=== PATIENT | female | born 1970 | race Caucasian/White ===

== ENCOUNTER 2020-01-19 22:41 | Inpatient (IN) | payer MEDICAID ==
[~2020-01-19] VITALS: Ht 165.1 cm; Wt 51.9 kg
--- NOTE | 2020-01-19 22:54 | NUR ---
49 YO FEMALE BROUGHT IN BY AMBULANCE FROM HOME WITH C/O 10/10 SHARP LEFT SIDE CHESTT PAIN RADIATING TO LEFT SHOULDER. PER EMS, PT RECEIVED NITROGLYCERIN IN ROUTE AND PT REPORTED IMPROVEMENT OF PAIN. AT ED, PT AWAKE, A/OX4, SPEAKING COMPLETE SENTENCES. PT STATES CHEST PAIN IS NOW 4/10. DENIES N/V/D. DENIES ANY COVID19 POSITIVE CONTACT AND STATES SHE WAS TESTED TWO WEEKS AGO AND RESULS WERE NEGATIVE. PT REPORTS HX OF DM AND HTN. RESPIRATIONS EVEN AND UNLABORED. VITALS SIGNS WNL. MD AT BEDSIDE FOR EXAMINATION PENDING FURTHER PLAN OF CARE.
[2020-01-19] MEDS ORDERED: [UNRECOGNIZED DRUG - REMARK] (22:59)
[2020-01-19] MEDS ORDERED: LISI-603 PO (22:59)
[2020-01-19] MEDS ORDERED: [UNRECOGNIZED DRUG - REMARK] (22:59)
[2020-01-19] MEDS ORDERED: NITROGLYCERIN 0.4 MG/TAB BOTTLE SL ONE (23:15)
[2020-01-19 23:23] LABS: CREATININE 0.6 mg/dL (0.6-1.3); POTASSIUM 3.1 mmol/L (3.5-5.1)
[2020-01-19 23:27] LABS: BASOPHILS % (AUTO) 0.7 % (0.0-2.0); EOSINOPHILS # (AUTO) 0.1 K/uL (0.0-0.7); EOSINOPHILS % (AUTO) 2.5 % (0.0-7.0); HEMATOCRIT 38.3 % (31.2-41.9); HEMOGLOBIN 12.6 g/dL (10.9-14.3); LYMPHOCYTES # (AUTO) 2.3 K/uL (20.0-40.0); LYMPHOCYTES % (AUTO) 66.4 % (20.5-51.5); MEAN CORPUSCULAR HEMOGLOBIN 31.8 uug (24.7-32.8); MEAN CORPUSCULAR HGB CONC 33 g/dL (32.3-35.6); MEAN CORPUSCULAR VOLUME 96.5 fL (75.5-95.3); MONOCYTES # (AUTO) 0.4 K/uL (2.0-10.0); MONOCYTES % (AUTO) 12.1 % (0.0-11.0); NEUTROPHILS # (AUTO) 0.6 K/uL (1.8-8.9); NEUTROPHILS % (AUTO) 18.3 % (38.5-71.5); PLATELET COUNT (AUTO) 89 K/uL (179-408); RED BLOOD CELL COUNT(AUTO) 3.97 MIL/uL (3.63-4.92); WHITE BLOOD COUNT (AUTO) 3.4 K/uL (3.8-11.8)
--- NOTE | 2020-01-19 23:29 | NUR ---
PATIENT UNABLE TO PROVIDE URINE SAMPLE AT THIS MOMENT. MD MYERS NOTIFIED.
[2020-01-19 23:35] LABS: BILIRUBIN,DIRECT 0.1 mg/dL (0.0-0.2); BILIRUBIN,TOTAL 0.4 mg/dL (0.2-1.0)
--- NOTE | 2020-01-19 23:41 | NUR ---
POTASSIUM SERUM LEVEL 3.1, MD MYERS NOTIFIED, PENDING FURTHER ORDERS.
--- NOTE | 2020-01-19 23:58 | NUR ---
CALLED [facility] AND PER ATTENDANT VICE CHAIRMAN ELFEGO SCHUSTER WILL BE ADMITTING THE PATIENT. MD MYERS NOTIFIED.
[2020-01-20] MEDS ORDERED: POTASSIUM CHLORIDE 20 MEQ TAB.PRT.SR PO ONE (00:15)
[2020-01-20] MEDS ORDERED: POTASSIUM BICARBONATE/CIT AC 25 MEQ TABLET.EFF ONE (00:19)
[2020-01-20] MEDS ORDERED: ONDANSETRON 4 MG/2 ML VIAL IV PRN (00:30)
[2020-01-20] MEDS ORDERED: MAGNESIUM HYDROXIDE 30 ML LIQUID UDC PO PRN (00:30)
[2020-01-20] MEDS ORDERED: Z GUARD REMEDY PASTE 57 GM TUBE TOP PRN (00:30)
[2020-01-20] MEDS ORDERED: FOLIC ACID 1 MG TABLET PO ONE (00:30)
[2020-01-20] MEDS ORDERED: ACETAMINOPHEN 325 MG TABLET PO PRN (00:30)
[2020-01-20] MEDS ORDERED: THIAMINE HCL 100 MG TABLET PO ONE (00:30)
[2020-01-20] MEDS ORDERED: HYDROCODONE/APAP 5-325MG TABLET PO PRN (00:30)
--- NOTE | 2020-01-20 00:31 | NUR ---
ALTERATIONS SEWER COVID SWAB AND URINE SAMPLE SENT TO LAB.
--- NOTE | 2020-01-20 00:50 | NUR ---
REPORT GIVEN TO GRETCHEN JACKMAN FOR CONTINUATION OF CARE. ALL QUESTIONS ANSWERED.
[2020-01-20 01:01] LABS: *AMPHETAMINE, URINE POSITIVE (NEGATIVE); *BARBITURATE, URINE NEGATIVE (NEGATIVE); *CANNABINOID, URINE POSITIVE (NEGATIVE); *COCCAINE, URINE NEGATIVE (NEGATIVE); *OPIATE, URINE NEGATIVE (NEGATIVE); *PHENCYCLIDINE SCREEN,URINE NEGATIVE (NEGATIVE)
--- NOTE | 2020-01-20 01:38 | NUR ---
PT COMPLAINING OF RESTLESSNESS, STATES "IM FEELING ANXIOUS, I ALWAYS TAKE ATIVAN WHEN IM LIKE THAT. CAN I GET ATIVAN." PER MD MYERS PT NEEDS ATIVAN. PAGED VP DATA ELFEGO SCHUSTER, AWAITING CALL BACK.
--- NOTE | 2020-01-20 01:46 | NUR ---
AISHA TELLES CALLED BACK AND NEW ORDER GIVEN FOR ATIVAN 1MG PO ONCE NOW FOR RESTLESSNESS.
[2020-01-20] MEDS ORDERED: LORAZEPAM 0.5 MG TABLET PO ONE (02:00)
[2020-01-20] MEDS ORDERED: LORAZEPAM 1 MG TABLET ONE (02:01)
--- NOTE | 2020-01-20 03:40 | NUR ---
PATIENT ASLEEP, AROUSABLE TO VOICE. DENIES ANY DISTRESS AT THIS MOMENT. VSS. NAD NOTED.
--- NOTE | 2020-01-20 05:03 | NUR ---
PATIENT ADMITTED TO TELE FLOOR ROOM 308 UNDER CARE OF SUPERVISOR MIRROR FABRICATION ELFEGO SCHUSTER. BELONGINGS LIST COMPLETED. PT AWAKE, A/OX4, SPEAKING COMPLETE SENTENCES. DENIES PAIN OR ANY DISTRESS. VITAL SIGNS WNL. NO ACUTE DISTRESS NOTED.
--- NOTE | 2020-01-20 05:05 | NUR ---
Received patient via wheelchair. Patient is AAOx4. Patient denies any chest pain or acute distress at this time. V/S stable and on room air. NSR 90 on tele monitor. Belongings list checked and secured. LW IV is intact. Safety measures in place. Call light within reach. Will continue with the plan of care.
[2020-01-20 05:10] VITALS: BP 103/100
--- NOTE | 2020-01-20 06:49 | NUR ---
Patient sleeping, easy to arouse. V/S stable. NSR 90 on tele monitor. Safety measures in place. Call light within reach. Will endorse to oncoming nurse accordingly.
[2020-01-20] MEDS ORDERED: NITROGLYCERIN 0.4 MG/TAB BOTTLE SL PRN (07:30)
[2020-01-20] MEDS ORDERED: MORPHINE SULFATE 2 MG/1 ML DISP.SYRIN IV PRN (07:30)
[2020-01-20] MEDS: POTASSIUM CHLORIDE 20 MEQ in IV NS 1000 ML 1,000 ML IV PRN ×2 (07:48→22:39)
[2020-01-20] MEDS: THIAMINE HCL 100 MG TABLET PO SCH (08:31)
[2020-01-20] MEDS: ASPIRIN EC 81 MG TABLET.DR PO SCH (08:31)
[2020-01-20] MEDS: FOLIC ACID 1 MG TABLET PO SCH (08:31)
[2020-01-20] MEDS: LORAZEPAM 2 MG/1 ML VIAL IV PRN ×2 (08:33→19:57)
[2020-01-20 11:09] VITALS: BP 141/96
--- NOTE | 2020-01-20 11:48 | NUR ---
Telecommunication Engineer Consultation: SW received a request for consultation. SW attempted to do a Zoom video session with the patient to complete the consultation, however SW was informed by patient's nurse Ann that patient is currently asleep after being given Aitvan. SW will attempt to meet with patient later.
--- NOTE | 2020-01-20 13:37 | NUR ---
2nd attempt of Conference Manager Consultation: Due to COVID-19 and droplet precautions, consultation assessment attempted with the patient via ZOOM. 1:30pm: SW attempted to meet with the patient, via Zoom video. Patient's nurse Ann set up the video session for the patient. Patient is a 49 year old female, who was awake and laying down in bed in her assigned hospital room. SW introduced herself to the patient. Patient stated that she does not want to speak with this SW because she already has a social worker aide outside of the hospital. SW acknowledged patient's choice, but also explained to the patient that SW wanted to see if there were any community resources that patient would want information on. Patient stated that she has all necessary resources, and declined any additional information on community resources. Patient's nurse Ann was in the patient's room, and also witnessed patient's refusal to speak with this SW. SW thanked the patient for her time, and ended the video session. Per patient's medical records, patient is homeless but lives in a hotel. Patient was brought to the ED by paramedics after experiencing a sudden onset of chest pain. Per patient's face sheet, patient has [employer] insurance. SW was unable to gather any additional information. At this time, no further SS interventions are needed, however SW will be available to the patient, as needed. SW will also work with the interdisciplinary team, as needed, to ensure a safe discharge for the patient.
[2020-01-20] MEDS: LISINOPRIL 20 MG TABLET PO SCH (13:46)
[2020-01-20 15:10] VITALS: BP 155/98
--- NOTE | 2020-01-20 20:00 | NUR ---
Received patient awake and alert. Patient shows no signs or symptoms of distress at this time. Denies having any chest pain at this time. Bed set to lowest position. Call light within reach. Side rails X2 are up. Will continue to monitor patient.
[2020-01-20 20:08] VITALS: BP 144/101
[2020-01-21 00:08] VITALS: BP 135/95
[2020-01-21] MEDS: LORAZEPAM 2 MG/1 ML VIAL IV PRN ×2 (02:09→09:10)
[2020-01-21 04:08] VITALS: BP 144/110
--- NOTE | 2020-01-21 05:12 | NUR ---
Patient's bp - 140/104. Rechecked on right arm and is 146/104. Patient asymptomatic and is resting comfortably at this time. Peg Gomes NP transportation department head for [employer] and was paged. Awaiting response.
--- NOTE | 2020-01-21 05:19 | NUR ---
Received orders from Peg Gomes NP. Will carry out.
[2020-01-21] MEDS ORDERED: FUROSEMIDE 20 MG TABLET PO ONE (05:30)
--- NOTE | 2020-01-21 06:17 | NUR ---
Patient shows no signs or symptoms of distress at this time. Sinus tachycardia low 100s on tele monitor. Denies having any chest pain at this time. Patient to be endorsed to day shift nurse in stable condition.
[2020-01-21] MEDS ORDERED: PANTOPRAZOLE SODIUM 40 MG TABLET.DR PO SCH (07:00)
[2020-01-21] MEDS: THIAMINE HCL 100 MG TABLET PO SCH (08:01)
[2020-01-21] MEDS: FOLIC ACID 1 MG TABLET PO SCH (08:01)
[2020-01-21] MEDS: LISINOPRIL 20 MG TABLET PO SCH (08:01)
[2020-01-21] MEDS: ASPIRIN EC 81 MG TABLET.DR PO SCH (08:01)
[2020-01-21 09:03] LABS: BASOPHILS % (AUTO) 0.6 % (0.0-2.0); EOSINOPHILS # (AUTO) 0.1 K/uL (0.0-0.7); EOSINOPHILS % (AUTO) 2.5 % (0.0-7.0); HEMATOCRIT 39.3 % (31.2-41.9); HEMOGLOBIN 13.3 g/dL (10.9-14.3); LYMPHOCYTES % (AUTO) 31.9 % (20.5-51.5); MEAN CORPUSCULAR HEMOGLOBIN 32.3 uug (24.7-32.8); MEAN CORPUSCULAR HGB CONC 34 g/dL (32.3-35.6); MEAN CORPUSCULAR VOLUME 95.9 fL (75.5-95.3); MONOCYTES # (AUTO) 0.5 K/uL (2.0-10.0); MONOCYTES % (AUTO) 14.5 % (0.0-11.0); NEUTROPHILS # (AUTO) 1.6 K/uL (1.8-8.9); NEUTROPHILS % (AUTO) 50.5 % (38.5-71.5); PLATELET COUNT (AUTO) 64 K/uL (179-408); WHITE BLOOD COUNT (AUTO) 3.2 K/uL (3.8-11.8)
[2020-01-21 09:19] LABS: BILIRUBIN,TOTAL 1.1 mg/dL (0.2-1.0); CREATININE 0.6 mg/dL (0.6-1.3); PHOSPHOROUS 2.9 mg/dL (2.5-4.9); POTASSIUM 3.7 mmol/L (3.5-5.1); TOTAL PROTEIN, SERUM 7.1 g/dL (6.4-8.2)
[2020-01-21] MEDS: POTASSIUM CHLORIDE 20 MEQ in IV NS 1000 ML 1,000 ML IV PRN (10:01)
[2020-01-21 10:14] LABS: MAGNESIUM 1.1 mg/dL (1.8-2.4)
[2020-01-21] MEDS: MAGNESIUM SULFATE/D5W 100 ML IV SCH ×2 (10:44→11:33)
[2020-01-21 11:43] VITALS: BP 126/91
--- NOTE | 2020-01-21 13:08 | NUR ---
dc orders received noted and carried out.dc heplock per md orders,dc instruction and education given to the pt,pt said she will follow up with her pcp .pt left the facility via walking from the hospital in proper clothing and in stable condition
[2020-01-21 17:20] LABS: EOSINOPHILS % (MANUAL) 5 % (0-8); LYMPHOCYTES % (MANUAL) 30 % (20-40); MONOCYTES % (MANUAL) 15 % (2-10); NEUTROPHILS % (MANUAL) 50 % (42-75)
== END 2020-01-21 13:10 | disposition home or self-care (01) | DRG 812 ==
LOC: ER 22:45 → TELE3 01-20 04:51 → MEDSURG3 01-21 09:12
PROVIDERS: ADMIT Nurse Practitioner Acute Care; ATTEND Nurse Practitioner Acute Care
DX: T43.621A Poisoning by amphetamines, accidental (unintentional), initial encounter (principal); R07.89 Other chest pain; F17.210 Nicotine dependence, cigarettes, uncomplicated; E87.6 Hypokalemia; E10.9 Type 1 diabetes mellitus without complications; E83.42 Hypomagnesemia; E86.0 Dehydration; I10 Essential (primary) hypertension; Z79.4 Long term (current) use of insulin; Z71.6 Tobacco abuse counseling; F10.129 Alcohol abuse with intoxication, unspecified; F19.10 Other psychoactive substance abuse, uncomplicated; Y90.8 Blood alcohol level of 240 mg/100 ml or more; Y92.009 Unspecified place in unspecified non-institutional (private) residence as the place of occurrence of the external cause
CPT/HCPCS: 36415; 70030-TC; 71045; 80307; 83735; 84100; 85025; 85730; 93005; 93307; A4663; G0378; G0480; J2060; J3475; J3480; J7030